=== PATIENT | female | born 1965 | race Two or more races ===

== ENCOUNTER 2018-12-18 09:39 | Outpatient (CLI) | payer OTHER ==
[~2018-12-18 09:39] MED LIST: NAPROXEN SODIU550 M1 PO; NORVASC2.5 M1 PO; ZYRTEC10 M3 PO
== END 2018-12-18 09:41 | disposition home or self-care (01) ==
LOC: SONOGRAMA 09:39 → MAMO-SONO 10:15
DX: N85.01 Benign endometrial hyperplasia (principal); R10.2 Pelvic and perineal pain

== ENCOUNTER 2019-03-23 07:28 | Day surgery (SDC) | payer OTHER ==
[~2019-03-23 07:28] MED LIST changes: +VITAMIN D10000 UNIT PO
[2019-03-23] MEDS ORDERED: IBUPROFEN400 MG PO (13:37)
== END 2019-03-23 17:00 | disposition home or self-care (01) ==
LOC: CIR.AMB 07:28
DX: N85.01 Benign endometrial hyperplasia (principal); N84.0 Polyp of corpus uteri